=== PATIENT | female | born 2000 | race Caucasian/White ===

== ENCOUNTER 2018-11-07 18:15 | Emergency (ER) | payer SELFPAY ==
[~2018-11-07] VITALS: Ht 157.5 cm; Wt 54.4 kg
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
--- NOTE | 2018-11-07 19:00 | NUR ---
REPORT TO SANAM CADE.
--- NOTE | 2018-11-07 19:34 | Diagnostic Imaging Report ---
INDICATION: Pain. FINDINGS: There is a minimally displaced fracture involving distal aspect of right fifth metacarpal. There is no other fracture or dislocation. Soft tissues are unremarkable. IMPRESSION: Minimally displaced and slightly angulated fracture involving the distal aspect of the right fifth metacarpal. Dictated by: Dictated on workstation # [id number]
[2018-11-07 20:07] VITALS: BP 105/56
== END 2018-11-07 20:07 | disposition home or self-care (01) ==
LOC: ER FS 18:18
DX: S92.351A Displaced fracture of fifth metatarsal bone, right foot, initial encounter for closed fracture (principal); Y04.8XXA Assault by other bodily force, initial encounter
CPT/HCPCS: 29125; 73120

== ENCOUNTER 2021-09-04 09:54 | Emergency (ER) | payer BC, OTHER ==
[~2021-09-04] VITALS: Ht 157 cm; Wt 75.0 kg
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
[2021-09-04] MEDS ORDERED: IBUPROFEN 600 MG (MOTRIN) TAB PO ONE (10:45)
--- NOTE | 2021-09-04 10:50 | Diagnostic Imaging Report ---
INDICATION: Fall, pain FINDINGS: 3 view left hand is performed. The scaphoid and remaining proximal and distal carpal rows as well as the distal radius and ulna appeared intact. The metacarpals and the phalanges intact. No fracture or dislocation identified. No focal soft tissue swelling apparent. No acute appearing abnormality. IMPRESSION: No fracture or acute appearing abnormality identified. Dictated by: Dictated on workstation # [id number]
--- NOTE | 2021-09-04 10:50 | Diagnostic Imaging Report ---
CLINICAL INDICATION: Patient is status post fall with left wrist and hand pain. EXAM: X-ray of the left wrist, 4 views. COMPARISON: None. FINDINGS: There is no acute fracture or dislocation. There is soft tissue swelling seen adjacent to the radial aspect of the wrist. There is no significant bone or joint abnormality. The scapholunate interval is unremarkable. The distal radioulnar joint is unremarkable. IMPRESSION: There is no acute fracture or dislocation. There is soft tissue swelling seen adjacent to the radial aspect of the wrist. Dictated by: Dictated on workstation # [id number]
[2021-09-04] MEDS ORDERED: OXYC5TAB PO (11:03)
[2021-09-04] MEDS ORDERED: IBUP-1773 PO (11:03)
[2021-09-04 11:12] VITALS: BP 125/93
== END 2021-09-04 11:12 | disposition home or self-care (01) ==
LOC: EDUNIT# 09:54 → ER FS 09:56
DX: S52.502A Unspecified fracture of the lower end of left radius, initial encounter for closed fracture (principal); V00.131A Fall from skateboard, initial encounter; Y93.51 Activity, roller skating (inline) and skateboarding
CPT/HCPCS: 73110; 73130

== ENCOUNTER 2022-08-24 19:19 | Emergency (ER) | payer SELFPAY ==
[~2022-08-24] VITALS: Ht 157.4 cm; Wt 72.5 kg
[~2022-08-24 19:19] MED LIST: IBUP-1773 PO; OXYC5TAB PO
[2022-08-24] MEDS ORDERED: IBUPROFEN 800 MG (MOTRIN) TAB PO STA (19:33)
--- NOTE | 2022-08-24 19:53 | ED Lower Extremity ---
General Chief Complaint: Lower Extremity Stated Complaint: RIGHT KNEE PAIN Nursing Triage Note: PT TO FT1 BY WC WITH CC OF R KNEE PAIN ABOUT 20MIN [employer]. PT STATES WAS KNEELING ON R KEEN WHEN SHE BEGAN TO HAVE THE PAIN. PT BELIEVES KNEE IS DISLOCATED. NO VISABLE DEFORMITIES NOTED AT TIME OF TRIAGE. Source: patient Exam Limitations: no limitations History of Present Illness Date Seen by Provider: Aug 24, 2022 Time Seen by Provider: 19:26 Initial Comments Here with report of right knee pain onset about 20 minutes prior to arrival. States that she was getting stuff set up in the backseat of her car so that she could lay down and was kneeling on the seat on her knees when she felt immediate pain. She believes it might be dislocated as she is having pain when moving it. She immediately came here. She needed assistance from the car due to pain. She states that it hurts significantly when she moves it. Denies other injury or concerns. Onset: just prior to arrival Severity: moderate Pain/Injury Location: right knee Allergies and Home Medications Allergies Coded Allergies: No Known Drug Allergies (Unverified , 11/07/18) Patient Home Medication List Home Medication List Reviewed: Yes Ibuprofen (Ibuprofen) 600 Mg Tablet, 600 MG PO Q6H Prescribed by: WILFRED MCCONNELL on 09/04/21 1103 Oxycodone HCl (Oxycodone HCl) 5 Mg Tablet, 5 MG PO Q8H PRN for PAIN-SEVERE (8- 10) Prescribed by: WILFRED MCCONNELL on 09/04/21 1103 Review of Systems Constitutional: see HPI; No chills, No fever Respiratory: no symptoms reported Cardiovascular: no symptoms reported Musculoskeletal: joint pain, joint swelling, muscle pain Past Hewawdp-Hqjznw-Onhrpw Hx Patient Social History Tobacco Use?: Yes Tobacco type used: Cigarettes Smoking Status: Current Everyday Smoker Substance use?: No Alcohol Use?: No Pt feels they are or have been: No Immunizations Up To Date Influenza Vaccine Up-to-Date: No; Not Current Seasonal Allergies Seasonal Allergies: No Past Medical History Surgeries: No Respiratory: No Cardiac: No Neurological: No Genitourinary: No Gastrointestinal: No Musculoskeletal: No Endocrine: No HEENT: No Cancer: No Psychosocial: No Integumentary: No Blood Disorders: No Family Medical History Reviewed Nursing Family Hx Physical Exam Vital Signs Vital Signs - First Documented 08/24/22 19:27 Temp 36.5 Pulse 91 Resp 18 B/P (MAP) 117/83 (94) Pulse Ox 95 O2 Delivery Room Air Capillary Refill : Less Than 3 Seconds Height, Weight, BMI Height: 5'2.00" Weight: 120lbs. oz. 54.474135fs; 29.00 BMI Method:Stated General Appearance: WD/WN, no apparent distress Cardiovascular: regular rate, rhythm, no murmur Respiratory: lungs clear, normal breath sounds Knees: left knee non-tender, left knee normal inspection, left knee normal range of motion; right knee soft tissue tenderness, right knee other (Question mild distal lateral effusion on. No dislocation. Good mobility of joint. Pain with and lifting leg but she is able to extend and flex. Seems to be most tender lateral aspect below the kneecap. No obvious redness, deformity or injury.) Neurologic/Psychiatric: alert, oriented x 3 Progress/Results/Core Measures Results/Orders My Orders Orders - RIC ALBERTS MD Knee, Right, 3 Views (08/24/22 19:33) Ibuprofen Tablet (Motrin Tablet) (08/24/22 19:33) Crutches (08/24/22 19:58) Vital Signs/I&O 08/24/22 19:27 Temp 36.5 Pulse 91 Resp 18 B/P (MAP) 117/83 (94) Pulse Ox 95 O2 Delivery Room Air Blood Pressure Mean: 94 Progress Progress Note : Progress Note Seen and evaluated. We will get x-ray of the right knee and give ibuprofen 800 mg p.o. Exam is reassuring but we will check x-ray. 1950: Right knee x-ray shows no acute abnormality on my interpretation pending radiology review. We will do Bryant wrap and have her follow-up with primary care doctor. OTC meds discussed. Patient requesting work note which will be given for tomorrow. Patient requesting crutches which will be given. Discharged home with return precautions. Patient verbalized understanding instructions and agreement with plan. Diagnostic Imaging Diagonstic Imaging: Xray Plain Films/CT/US/NM/MRI: knee Comments Radiology reports no acute fracture or other abnormality. See full report for details. Departure Impression Primary Impression: Right knee pain Qualified Codes: M25.561 - Pain in right knee Disposition: 01 HOME, SELF-CARE Condition: Stable Departure-Patient Inst. Decision time for Depature: 19:54 Referrals: MARGARITA MARCELINO APRN (PCP) Primary Care Physician [facility]/[place] (Family) Primary Care Physician Patient Instructions: Knee Pain ED Add. Discharge Instructions: All discharge instructions reviewed with patient and/or family. Voiced understanding. You may take ibuprofen 600 mg every 8 hours as needed for pain. You may also take Tylenol/acetaminophen 1000 mg every 8 hours as needed for pain. You may use ice packs to area of concern 20 minutes/h as needed to reduce swelling and pain. Elevate the knee and leg to reduce swelling and pain. Use Bryant wrap to knee as needed. Rest tomorrow. Follow-up with your primary care doctor for recheck and further evaluation especially if not improving. Return for worse pain, swelling, weakness, numbness or other concerns as needed. Work/School Note: Work Release Form Date Seen in the Emergency Department: Aug 24, 2022 Return to Work: Aug 26, 2022 Restrictions: No Restrictions RIC ALBERTS MD Aug 24, 2022 19:53
--- NOTE | 2022-08-24 19:58 | Diagnostic Imaging Report ---
INDICATION: Knee pain. EXAMINATION: Three view right knee performed. FINDINGS: No fracture, dislocation or acute appearing bone or joint abnormality. IMPRESSION: No acute appearing abnormality. Dictated by: Dictated on workstation # [id number]
[2022-08-24 20:03] VITALS: BP 117/83
== END 2022-08-24 20:05 | disposition home or self-care (01) ==
LOC: EDUNIT# 19:19 → ER 19:20
DX: M25.561 Pain in right knee (principal); F17.210 Nicotine dependence, cigarettes, uncomplicated; Z28.310 Unvaccinated for COVID-19
CPT/HCPCS: 73562

== ENCOUNTER 2022-09-03 13:58 | Emergency (ER) | payer SELFPAY ==
[2022-09-03 14:25] VITALS: BP 117/88
--- NOTE | 2022-09-03 14:25 | ED Lower Extremity ---
General Chief Complaint: Lower Extremity Stated Complaint: RT KNEE PAIN Nursing Triage Note: PT HURT HER KNEE ABOUT 10 DAYS AGO AND SHE FINALLY WAS ABLE TO GO BACK TO WORK YESTERDAY AND LAST NIGHT SHE BENT DOWN TO GET SOMETHING OUT OF HER CAR AND FELT A POP IN THAT SAME KNEE.SLIGHT SWELLING TO THE RIGHT KNEE. Source: patient, old records Exam Limitations: no limitations History of Present Illness Date Seen by Provider: Sep 03, 2022 Time Seen by Provider: 14:01 Initial Comments 21-year-old female with no pertinent past medical history coming in due to right knee pain. She hurt her knee roughly 10 days ago while leaning on it in a car seat. Went to the ER, x-ray negative, discharged with crutches. Has not had orthopedic follow-up as of yet, she states they have not called her back. Pain was doing better, yesterday twisted when she was planted a little bit and felt another sharp pain, no pop at this time. Noticed it was swollen this morning. She is using an Bryant wrap as well as crutches. Has not taken anything for pain. Otherwise denying any other acute complaints. Allergies and Home Medications Allergies Coded Allergies: No Known Drug Allergies (Unverified , 11/07/18) Patient Home Medication List Home Medication List Reviewed: Yes Ibuprofen (Ibuprofen) 600 Mg Tablet, 600 MG PO Q6H Prescribed by: WILFRED MCCONNELL on 09/04/21 1103 Oxycodone HCl (Oxycodone HCl) 5 Mg Tablet, 5 MG PO Q8H PRN for PAIN-SEVERE (8- 10) Prescribed by: WILFRED MCCONNELL on 09/04/21 1103 Review of Systems Constitutional: No fever EENTM: no symptoms reported Cardiovascular: no symptoms reported Gastrointestinal: no symptoms reported Genitourinary: no symptoms reported Musculoskeletal: see HPI Skin: no symptoms reported Psychiatric/Neurological: No Symptoms Reported Past Wcdaida-Ehltoi-Kgwjdb Hx Patient Social History Tobacco Use?: Yes Tobacco type used: Cigarettes Smoking Status: Current Everyday Smoker Use of E-Cig and/or Vaping dev: No Substance use?: No Alcohol Use?: No Pt feels they are or have been: No Seasonal Allergies Seasonal Allergies: No Past Medical History Surgeries: No Respiratory: No Cardiac: No Neurological: No Genitourinary: No Gastrointestinal: No Musculoskeletal: No Endocrine: No HEENT: No Cancer: No Psychosocial: No Integumentary: No Blood Disorders: No Physical Exam Vital Signs Vital Signs - First Documented 09/03/22 14:00 Temp 36.6 Pulse 65 Resp 16 B/P (MAP) 117/88 (98) Pulse Ox 98 O2 Delivery Room Air Capillary Refill : Less Than 3 Seconds Height, Weight, BMI Height: 5'2.00" Weight: 120lbs. oz. 54.268263ou; BMI Method:Stated General Appearance: WD/WN, no apparent distress HEENT: PERRL/EOMI, normal ENT inspection, pharynx normal Neck: non-tender, full range of motion Cardiovascular: regular rate, rhythm Respiratory: chest non-tender Gastrointestinal: non tender, soft Back: normal inspection Legs: bilateral leg non-tender, bilateral leg normal inspection, bilateral leg normal range of motion, bilateral leg no evidence of injury Knees: bilateral knee other (Right knee with effusion, tender along the lateral joint line, stable endpoint to MCL, LCL, normal posterior drawer, normal endpoint with Julianne's compared to other leg, difficult bending the knee due to pain but was able to get it to least 90 degrees) Neurologic/Tendon: normal sensation, normal motor functions, normal tendon functions Neurologic/Psychiatric: no motor/sensory deficits, alert, normal mood/affect Skin: normal color, warm/dry Progress/Results/Core Measures Results/Orders Vital Signs/I&O 09/03/22 14:00 Temp 36.6 Pulse 65 Resp 16 B/P (MAP) 117/88 (98) Pulse Ox 98 O2 Delivery Room Air Blood Pressure Mean: 98 Progress Progress Note : Progress Note 21-year-old female with above history coming in due to right knee pain. ABCs were intact and vitals were stable on presentation. She is neurovascularly intact in her right lower extremity. Physical exam with the effusion in the right knee, and given the lack of significant trauma within normal x-ray the other day, fracture very unlikely. Stable ligamentous exam making ligamentous injury unlikely. Given the effusion with the lateral joint tenderness, most likely has a lateral meniscus tear from the twisting movement she did. We wrapped it in an Bryant bandage today, we will recommend symptomatic management with NSAIDs and follow-up with orthopedics as an outpatient Departure Impression Primary Impression: Lateral knee pain Qualified Codes: M25.561 - Pain in right knee Additional Impression: Knee effusion, right Disposition: 01 HOME, SELF-CARE Condition: Stable Departure-Patient Inst. Decision time for Depature: 14:23 Referrals: MARGARITA MARCELINO APRN (PCP) Primary Care Physician [facility]/[place] (Family) Primary Care Physician SARAH LAUGHLIN Patient Instructions: Meniscus Tear ED Add. Discharge Instructions: You have fluid on your knee that is called an effusion. Typically for this to occur, something is typically torn. Your ligaments felt stable including your ACL. My suspicion is you have a lateral meniscus tear based on your exam. Please follow-up with Arron Laughlin here in [facility] for evaluation, as you may need physical therapy or possible referral for surgery if things are not improving. Take 600 mg of ibuprofen every 6 hours and 1000 mg of Tylenol every 6-8 hours. Try to keep your knee elevated to help with the fluid. Be trying to bend it and straighten it multiple times a day so that it does not get stiff. Work/School Note: Work Release Form Date Seen in the Emergency Department: Sep 03, 2022 Return to Work: Sep 05, 2022 Restrictions: No Restrictions WILFRED MCCONNELL MD Sep 03, 2022 14:24
== END 2022-09-03 14:26 | disposition home or self-care (01) ==
LOC: EDUNIT# 13:58 → ER FS 13:59
DX: M25.561 Pain in right knee (principal); M25.461 Effusion, right knee
CPT/HCPCS: 99281